=== PATIENT | female | born 1945 | race Caucasian/White ===

== ENCOUNTER 2022-02-25 08:54 | Outpatient (CLI) | payer OTHER | END 2022-02-25 08:55 | disposition home or self-care (01) | LOC: NUCLEAR 08:54 | PROVIDERS: ATTEND Internal Medicine Cardiovascular Disease | DX: M85.89 Other specified disorders of bone density and structure, multiple sites (principal) ==

== ENCOUNTER 2025-05-03 09:09 | Outpatient (CLI) | payer OTHER | END 2025-05-03 09:10 | disposition home or self-care (01) | LOC: NUCLEAR 09:09 | PROVIDERS: ATTEND Internal Medicine Cardiovascular Disease | DX: M81.0 Age-related osteoporosis without current pathological fracture (principal) ==